=== PATIENT | female | born 1975 | race American Indian/Alaskan Native ===

== ENCOUNTER 2018-03-07 15:37 | Emergency (ER) | payer MEDICAID ==
[2018-03-07] MEDS ORDERED: Bacitracin Oint 1 GM U/D Packet TOP ONE (15:38)
[2018-03-07] MEDS ORDERED: Lidocaine 1% 30 ML SDV SUBCUT ONE (15:38)
== END 2018-03-07 17:35 | disposition home or self-care (01) ==
LOC: DL.ED 15:37
DX: S61.411A Laceration without foreign body of right hand, initial encounter (principal); E11.9 Type 2 diabetes mellitus without complications; W22.8XXA Striking against or struck by other objects, initial encounter; Z88.0 Allergy status to penicillin
CPT/HCPCS: 12002; 12011; 73110-RT; 99282